=== PATIENT | female | born 1995 | race American Indian/Alaskan Native ===

== ENCOUNTER 2017-05-01 19:02 | Emergency (ER) | payer MEDICAID ==
[2017-05-01 20:08] LABS: Basophils % (Auto) 0.1 % (0.0-1.8); Eosinophils % (Auto) 0.4 % (0.0-4.3); Hematocrit 36.4 % (30.3-42.9); Hemoglobin 12.2 gm/dl (10.1-14.3); Mean Corpuscular HGB Conc 33 % (30-34); Mean Corpuscular Hemoglobin 30 pg (28-32); Mean Corpuscular Volume 88 fl (79-97); Platelet Count 251 K/mm3 (140-440); Red Blood Count 4.13 M/mm3 (3.65-5.03); Red Cell Distribution Width 13.3 % (13.2-15.2); White Blood Count 9.1 K/mm3 (4.5-11.0)
[2017-05-01 20:25] LABS: Anion Gap 16 mmol/L; Blood Urea Nitrogen 11 mg/dL (7-17); Carbon Dioxide 25 mmol/L (22-30); Chloride 100.3 mmol/L (98-107); Glucose 75 mg/dL (65-100); Sodium 137 mmol/L (137-145)
[2017-05-01 20:48] LABS: Bilirubin,Urine NEG (Negative); Blood,Urine NEG (Negative); Ketones,Urine NEG (Negative); Leukocyte Esterase,Urine TR (Negative); Mucus,Urine 1+ /HPF; Nitrite,Urine NEG (Negative); Protein,Urine <15 mg/dL mg/dL (Negative)
[2017-05-01] MEDS ORDERED: NACL 0.9% 1000 ML 1,000 ML IV ONE (21:50)
--- NOTE | 2017-05-01 21:56 | Emergency Department Report ---
HPI - General Chief Complaint: Headache Time Seen by Provider: 05/01/17 21:40 - HPI HPI: Room 2 The patient is a 21-year-old female presenting with a chief complaint of diarrhea dizziness and abdominal pain. The patient is approximately 17 weeks gestational age and states for the past month she has had many headaches associated with sore throat. Patient states she's had diarrhea and nausea but denies vomiting. The patient states when she stands of prolonged time she gets dizzy and develops headache. Patient states she feels motions can't pass out. Patient states for the last week she has had lower abdominal pain and back pain. Patient denies vaginal bleeding. When asked how she is feeling currently the patient replies that her throat hurts, she has low back pain and lower abdominal cramping. Patient denies any other complaints Location: [see above] Duration: One month, see above Quality: Cramping Severity: Mild Modifying factors: [see above] Context: [see above] Mode of transportation: [not driving] ED Past Medical Hx - Past Medical History Previous Medical History?: No - Surgical History Past Surgical History?: No - Family History Family history: no significant - Social History Smoking Status: Never Smoker Substance Use Type: None (denies illicit drug use) - Medications Home Medications: Home Medications Medication Instructions Recorded Confirmed Last Taken Type Ibuprofen [Motrin] 600 mg PO Q8H PRN #30 tablet 02/19/15 06/04/16 Unknown Rx Sulfamethoxazole/Trimethoprim 1 each PO BID #10 tablet 02/19/15 06/04/16 Unknown Rx [Bactrim Ds] traMADol [Ultram] 50 mg PO Q6HR PRN #14 tablet 02/19/15 06/04/16 Unknown Rx HYDROcodone/APAP 5-325 [[place] 1 each PO Q6HR PRN #10 tablet 06/05/16 Unknown Rx 5/325] Ibuprofen [Motrin 600 MG tab] 600 mg PO Q6HR #30 tablet 06/05/16 Unknown Rx Multivitamin with Iron 1 each PO DAILY #30 tablet 06/05/16 Unknown Rx [Multivitamins with Iron] ED Review of Systems ROS: Stated complaint: HEADACHE X 4 DAYS Other details as noted in HPI Comment: All other systems reviewed and negative Constitutional: denies: chills, fever Eyes: denies: eye pain, eye discharge, vision change ENT: denies: ear pain, throat pain Respiratory: denies: cough, shortness of breath, wheezing Cardiovascular: denies: chest pain, palpitations Endocrine: no symptoms reported Gastrointestinal: abdominal pain, nausea, diarrhea. denies: vomiting Genitourinary: denies: urgency, dysuria, discharge Musculoskeletal: back pain, myalgia Skin: denies: rash, lesions Neurological: headache. denies: weakness, paresthesias Psychiatric: denies: anxiety, depression Hematological/Lymphatic: denies: easy bleeding, easy bruising Physical Exam - Physical Exam Vital Signs: Vital Signs 05/01/17 19:19 Temperature 97.8 F Pulse Rate 95 H Respiratory 18 Rate Blood Pressure 106/67 O2 Sat by Pulse 100 Oximetry Physical Exam: GENERAL: The patient is well-developed well-nourished female sitting on stretcher not appearing to be in acute distress. [] HEENT: Normocephalic. Atraumatic. Extraocular motions are intact. Patient has moist mucous membranes. NECK: Supple. No meningitic signs are noted. Trachea Midline CHEST/LUNGS: Clear to auscultation. There is no respiratory distress noted. HEART/CARDIOVASCULAR: Regular. There is no tachycardia. There is no gallop rub or murmur. ABDOMEN: Abdomen is soft, mild discomfort to palpation in the left lower quadrant. Patient has normal bowel sounds. There is no abdominal distention. SKIN: There is no rash. There is no edema. There is no diaphoresis. NEURO: The patient is awake, alert, and oriented. The patient is cooperative. The patient has no focal neurologic deficits. The patient has normal speech and gait. He well-nourished 2 through 12 grossly intact, no drift. No dysmetria noted with [id number] bilaterally. Negative [place]berg MUSCULOSKELETAL:There is no evidence of acute injury. ED Course Vital Signs 05/01/17 19:19 Temperature 97.8 F Pulse Rate 95 H Respiratory 18 Rate Blood Pressure 106/67 O2 Sat by Pulse 100 Oximetry ED Medical Decision Making - Lab Data Result diagrams: 05/01/17 19:48 05/01/17 19:48 Laboratory Tests 05/01/17 05/01/17 05/01/17 19:48 19:48 19:48 WBC 9.1 RBC 4.13 Hgb 12.2 Hct 36.4 MCV 88 MCH 30 MCHC 33 RDW 13.3 Plt Count 251 Lymph % (Auto) 15.9 Long % (Auto) 6.5 Eos % (Auto) 0.4 Baso % (Auto) 0.1 Lymph # 1.4 Long # 0.6 Eos # 0.0 Baso # 0.0 Seg Neutrophils % 77.1 H Seg Neutrophils # 7.0 Sodium 137 Potassium 4.0 Chloride 100.3 Carbon Dioxide 25 Anion Gap 16 BUN 11 Creatinine 0.5 L Estimated GFR > 60 BUN/Creatinine Ratio 22.00 Glucose 75 Calcium 9.0 HCG, Quant 77135 H Urine Color Urine Turbidity Urine pH Ur Specific [place] Urine Protein Urine Glucose (UA) Urine Ketones Urine Blood Urine Nitrite Ur Reducing Substances Urine Bilirubin Urine Ictotest Urine Urobilinogen Ur Leukocyte Esterase Urine WBC (Auto) Urine RBC (Auto) U Epithel Cells (Auto) Urine Mucus Urine HCG, Qual 05/01/17 20:21 WBC RBC Hgb Hct MCV MCH MCHC RDW Plt Count Lymph % (Auto) Long % (Auto) Eos % (Auto) Baso % (Auto) Lymph # Long # Eos # Baso # Seg Neutrophils % Seg Neutrophils # Sodium Potassium Chloride Carbon Dioxide Anion Gap BUN Creatinine Estimated GFR BUN/Creatinine Ratio Glucose Calcium HCG, Quant Urine Color Yellow Urine Turbidity Clear Urine pH 6.0 Ur Specific [place] 1.028 Urine Protein <15 mg/dl Urine Glucose (UA) Neg Urine Ketones Neg Urine Blood Neg Urine Nitrite Neg Ur Reducing Substances Not Reportable Urine Bilirubin Neg Urine Ictotest Not Reportable Urine Urobilinogen 4.0 Ur Leukocyte Esterase Tr Urine WBC (Auto) 1.0 Urine RBC (Auto) 7.0 U Epithel Cells (Auto) 9.0 Urine Mucus 1+ Urine HCG, Qual Positive A - Radiology Data Radiology results: report reviewed (pelvic ultrasound), image reviewed (pelvic ultrasound) pelvic ultrasound processes read by radiologist)-single live intrauterine . heart motion was detected and heart rate is 162 bpm. - Differential Diagnosis UTI, threatened , dehydration, Critical care attestation.: If time is entered above; I have spent that time in minutes in the direct care of this critically ill patient, excluding procedure time. ED Disposition Clinical Impression: , Dehydration Disposition: DC-01 TO HOME OR SELFCARE Is pt being admited?: No Does the pt Need Aspirin: No Condition: Stable Instructions: Dehydration (ED), (ED) Additional Instructions: Return to the emergency department immediately should you develop worsening symptoms, fever, inability to tolerate food or liquid or any other concerns. Referrals: ADRIENNE CONDE [Other] - 3-5 Days Time of Disposition: 23:29
--- NOTE | 2017-05-01 23:04 | Ultrasound Report ---
FINAL REPORT EXAM: US OB \T\gt; = 14 WEEKS FETUS HISTORY: lower abdominal pain TECHNIQUE: Transabdominal sonography of the pelvis. PRIORS: None for this . FINDINGS: There is a single, live intrauterine in cephalic presentation. heart motion is detected and heart rate is 162 beats per minute. Placenta is located posterior and there is no evidence of previa. Cervical length 3.4 cm. Biometric data obtained and corresponds to an estimated gestational age of 18 weeks 1 day and an ultrasound estimated date of delivery of 01 October 2017. survey not performed. Amniotic fluid index is subjectively within normal limits. BPD: 4.07 cm HC: 15.0 cm AC: 12.6 cm FL: 2.83 cm Remainder of the uterus and adnexa grossly unremarkable. IMPRESSION: 1. Single, live intrauterine .
[2017-05-02 00:04] VITALS: BP 100/70
== END 2017-05-01 23:55 | disposition home or self-care (01) ==
LOC: ED 19:02
DX: O26.892 Other specified pregnancy related conditions, second trimester (principal); E86.0 Dehydration; Z3A.17 17 weeks gestation of pregnancy
CPT/HCPCS: 36415; 76805; 80048; 81001; 81025; 84702; 85025; 96360; 99284; J7030

== ENCOUNTER 2017-07-15 18:30 | Outpatient (CLI) | payer MEDICAID ==
[2017-07-15 22:43] LABS: Bacteria,Urine 1+ /HPF (Negative); Bilirubin,Urine NEG (Negative); Blood,Urine NEG (Negative); Ketones,Urine TR mg/dL (Negative); Leukocyte Esterase,Urine NEG (Negative); Mucus,Urine 1+ /HPF; Nitrite,Urine NEG (Negative); Urobilinogen,Urine < 2.0 mg/dL (<2.0)
[2017-07-15] MEDS ORDERED: LACTATED RINGERS 1,000 ML IV SCH (23:00)
[2017-07-16] MEDS ORDERED: LACTATED RINGERS 500 ML IV ONE (00:01)
== END 2017-07-16 00:07 | disposition home or self-care (01) ==
LOC: EDSTATUS 20:18 → TRG 20:21
PROVIDERS: ATTEND Obstetrics & Gynecology Gynecology
DX: O21.2 Late vomiting of pregnancy (principal); O26.892 Other specified pregnancy related conditions, second trimester; R51 Headache; R10.9 Unspecified abdominal pain; Z3A.27 27 weeks gestation of pregnancy
CPT/HCPCS: 81001; 96360

== ENCOUNTER 2017-08-21 12:01 | Outpatient (CLI) | payer MEDICAID ==
[2017-08-21] MEDS ORDERED: LACTATED RINGERS 500 ML IV ONE (12:14)
[2017-08-21 12:17] VITALS: BP 96/57
[2017-08-21 13:04] LABS: Bacteria,Urine 1+ /HPF (Negative); Bilirubin,Urine NEG (Negative); Blood,Urine NEG (Negative); Ketones,Urine NEG (Negative); Leukocyte Esterase,Urine LG (Negative); Mucus,Urine 1+ /HPF; Nitrite,Urine NEG (Negative); Protein,Urine <15 mg/dL mg/dL (Negative)
== END 2017-08-21 13:49 | disposition home or self-care (01) ==
LOC: TRG 12:01
PROVIDERS: ATTEND Obstetrics & Gynecology Gynecology
DX: O47.03 False labor before 37 completed weeks of gestation, third trimester (principal); Z3A.35 35 weeks gestation of pregnancy
CPT/HCPCS: 59025; 81001; 96360; J7120

== ENCOUNTER 2017-08-24 08:47 | Outpatient (CLI) | payer MEDICAID ==
[2017-08-24 09:16] VITALS: BP 106/57
[2017-08-24] MEDS: LACTATED RINGERS 1,000 ML IV SCH ×2 (10:07→11:07)
[2017-08-24 10:56] LABS: Bacteria,Urine 1+ /HPF (Negative); Bilirubin,Urine NEG (Negative); Blood,Urine NEG (Negative); Ketones,Urine TR mg/dL (Negative); Leukocyte Esterase,Urine LG (Negative); Mucus,Urine 3+ /HPF; Nitrite,Urine NEG (Negative)
[2017-08-24 10:59] LABS: Basophils % (Auto) 0.1 % (0.0-1.8); Eosinophils % (Auto) 0.1 % (0.0-4.3); Hematocrit 38.2 % (30.3-42.9); Hemoglobin 13.4 gm/dl (10.1-14.3); Mean Corpuscular HGB Conc 35 % (30-34); Mean Corpuscular Hemoglobin 31 pg (28-32); Mean Corpuscular Volume 88 fl (79-97); Platelet Count 250 K/mm3 (140-440); Red Blood Count 4.34 M/mm3 (3.65-5.03); Red Cell Distribution Width 12.9 % (13.2-15.2); White Blood Count 9.7 K/mm3 (4.5-11.0)
[2017-08-24] MEDS ORDERED: ZOFRAN IV NR (11:00)
[2017-08-24] MEDS ORDERED: LACTATED RINGERS 500 ML IV ONE (11:00)
[2017-08-24 11:32] LABS: Anion Gap 17 mmol/L; BUN/Creatinine Ratio 14; Blood Urea Nitrogen 7 mg/dL (7-17); Calcium 8.7 mg/dL (8.4-10.2); Carbon Dioxide 23 mmol/L (22-30); Chloride 100.8 mmol/L (98-107); Glucose 73 mg/dL (65-100); Potassium 3.9 mmol/L (3.6-5.0); Sodium 137 mmol/L (137-145)
== END 2017-08-24 11:55 | disposition home or self-care (01) ==
LOC: TRG 08:47
PROVIDERS: ATTEND Obstetrics & Gynecology
DX: Z34.93 Encounter for supervision of normal pregnancy, unspecified, third trimester (principal); Z3A.36 36 weeks gestation of pregnancy
CPT/HCPCS: 36415; 59025; 80048; 81001; 85025; 96360; 96361; 96365; J2405; J7120

== ENCOUNTER 2017-08-29 18:06 | Outpatient (CLI) | payer MEDICAID ==
[2017-08-29] MEDS ORDERED: LACTATED RINGERS 500 ML IV ONE (18:53)
--- NOTE | 2017-08-30 07:37 | Ultrasound Report ---
ULTRASOUND OB LIMITED History: well being, evaluate amniotic fluid Technique: Transabdominal ultrasound with Doppler interrogation. Gestation: Single Position: Breech Amniotic Fluid: Normal LEANNA = 7.8 cm Heart Rate: 157 BPM
== END 2017-08-29 21:32 | disposition home or self-care (01) ==
LOC: TRG 18:06
PROVIDERS: ATTEND Obstetrics & Gynecology Gynecology
DX: O32.1XX0 Maternal care for breech presentation, not applicable or unspecified (principal); O47.03 False labor before 37 completed weeks of gestation, third trimester; Z3A.36 36 weeks gestation of pregnancy
CPT/HCPCS: 59025; 76815

== ENCOUNTER 2017-09-08 13:08 | Inpatient (IN) | payer MEDICAID ==
[2017-09-08] MEDS ORDERED: REGLAN IV SCH (13:36)
--- NOTE | 2017-09-08 13:38 | History and Physical Report ---
History of Present Illness Date of examination: 09/08/17 Date of admission: 09/08/17 13:08 Chief complaint: IUGR with oligohydramnios History of present illness: 22-year-old 001 at 37+2 weeks (IRINA 09/29/17) is here for delivery. Patient was seen by [facility] for IUGR, patient now has oligo with LEANNA ~ 5. He sent over for delivery, patient in breech presentation. course otherwise unremarkable She denies vaginal bleeding, loss of fluid or contractions Past History Past Medical History: no pertinent history Past Surgical History: no surgical history [employer] History: denies: chlamydia, gonorrhea, hepatitis B, hepatitis C, herpes, HIV , syphilis, trichomonas Social history: single, full code. denies: smoking, alcohol abuse, prescription drug abuse, IV drug use - Obstetrical History Expected Date of Delivery: 09/29/17 Actual Gestation: 37 Week(s) 0 Day(s) : 2 Medications and Allergies Allergies Allergy/AdvReac Type Severity Reaction Status Date / Time No Known Allergies Allergy Verified 03/06/15 10:29 Home Medications Medication Instructions Recorded Confirmed Last Taken Type Ibuprofen [Motrin] 600 mg PO Q8H PRN #30 tablet 02/19/15 06/04/16 Unknown Rx Sulfamethoxazole/Trimethoprim 1 each PO BID #10 tablet 02/19/15 06/04/16 Unknown Rx [Bactrim Ds] traMADol [Ultram] 50 mg PO Q6HR PRN #14 tablet 02/19/15 06/04/16 Unknown Rx HYDROcodone/APAP 5-325 [[place] 1 each PO Q6HR PRN #10 tablet 06/05/16 Unknown Rx 5/325] Ibuprofen [Motrin 600 MG tab] 600 mg PO Q6HR #30 tablet 06/05/16 Unknown Rx Multivitamin with Iron 1 each PO DAILY #30 tablet 06/05/16 Unknown Rx [Multivitamins with Iron] Review of Systems Constitutional: no fever, no chills, no malaise, no chronic headaches Eyes: no diplopia, no photophobia, no blind spots Cardiovascular: no chest pain, no orthopnea, no palpitations, no syncope, no lightheadedness, no shortness of breath, no dyspnea on exertion, no high blood pressure, no decreased exercise tolerance Respiratory: no cough, no cough with sputum, no shortness of breath, no dyspnea on exertion Gastrointestinal: no abdominal pain, no nausea, no vomiting Genitourinary: no vaginal bleeding, no vaginal discharge, no leakage of fluid - Physical Exam Cardiovascular: Regular rate, Normal S1, Normal S2 Lungs: Positive: Clear to auscultation, Normal air movement Abdomen: Positive: normal appearance, soft. Negative: distention, tenderness, guarding, rigidity Genitourinary (Female): Positive: normal external genitalia Uterus: Positive: enlarged (EFW ~ 3200). Negative: tender Extremities: Positive: normal - Obstetrical FHR: category 1 Results All other labs normal. Assessment and Plan A: 22 y/o at ~ 37 wks here for Primary LTCS -Breech presentation -Oligohydramnious P: -Obtain routine labs -Patient has been consented -Proceed to the OR was available - Patient Problems (1) 37 weeks gestation of Current Visit: Yes Status: Acute (2) Breech presentation Current Visit: Yes Status: Acute Qualifiers: Fetus number: F (3) Oligohydramnios Current Visit: Yes Status: Acute Qualifiers: Fetus number: F Trimester: T (4) Short interval between pregnancies affecting in third trimester, antepartum Current Visit: Yes Status: Acute
[2017-09-08] MEDS ORDERED: BICITRA PO SCH (14:00)
[2017-09-08] MEDS ORDERED: ANCEF/STERILE WATER 2 GM/20 ML 2 GM/20 ML SYRINGE IV NR (14:00)
[2017-09-08] MEDS ORDERED: PITOCin/NS 20 UNIT/1000ML DRIP 20 UNITS/1,000 ML BAG IV SCH ×2 (14:00→19:00)
[2017-09-08] MEDS ORDERED: PEPCID IV SCH (14:00)
[2017-09-08] MEDS ORDERED: PEPCID IV ONE (14:00)
[2017-09-08 14:35] LABS: Basophils % (Auto) 0.1 % (0.0-1.8); Eosinophils % (Auto) 0.5 % (0.0-4.3); Hematocrit 40.6 % (30.3-42.9); Mean Corpuscular HGB Conc 34 % (30-34); Mean Corpuscular Hemoglobin 31 pg (28-32); Mean Corpuscular Volume 89 fl (79-97); Platelet Count 275 K/mm3 (140-440); Red Blood Count 4.58 M/mm3 (3.65-5.03); Red Cell Distribution Width 13.1 % (13.2-15.2); White Blood Count 7.7 K/mm3 (4.5-11.0)
[2017-09-08] MEDS: LACTATED RINGERS 1,000 ML IV SCH ×2 (14:37→15:59)
[2017-09-08] MEDS ORDERED: NEO SYNEPHRINE/NS Syringe(OR USE) IV ONE (17:00)
[2017-09-08] MEDS ORDERED: MORPHINE ONE (17:11)
[2017-09-08] MEDS ORDERED: NACL 0.9% IR ONE (17:20)
[2017-09-08] MEDS ORDERED: WATER FOR IRRIG STERILE IR ONE (17:20)
--- NOTE | 2017-09-08 18:25 | Operative Report ---
Operative Report Operative Report: DATE: 09/08/2017 PREOPERATIVE DIAGNOSIS: 22-year-old 001 at 37+2 weeks gestation, oligohydramnios, complete breech presentation, IUGR POSTOP DIAGNOSIS: As above NAME OF PROCEDURE: Primary low transverse section SURGEON: SHAYY VARELA MD SUPPLY SERVICE WORKER: [] ANESTHESIA: Spinal epidural EBL: 500 mL PATHOLOGY SPECIMEN: None URINE OUTPUT: 100 mL FINDINGS: Female infant in complete breech presentation, time of was 17:44 , weight was 4 lbs. 8 oz. or 2049 g, Apgars were 8 and 9, normal uterus tubes and ovaries bilaterally DESCRIPTION OF PROCEDURE: After informed consent, patient was taken to the operating room where she was prepped and draped in a sterile fashion. Pfannestial incision was performed 2 cm above the pubic symphysis. This was then carried down to the underlying rectus fascia which was scored in the midline. The fascial incision was extended laterally with the use of Chavez scissors, anterior leaf was then grasped with Saul's elevated dissected sharply and bluntly off the underlying rectus. In a similar fashion the inferior leaf was grasped elevated dissected sharply and bluntly off the underlying rectus. The rectus was in the midline and the peritoneal cavity was entered without difficulty. After good visualization of the bladder the peritoneal layer was extended up and down; bladder blade was placed in the patient's pelvic cavity, bladder flap was created without difficulty. A hysterotomy incision was then performed with Clear amniotic fluid noted. in cephalic presentation was delivered without difficulty in the usual manner; cord was clamped cut and infant was handed over to waiting NICU staff. The placenta was then delivered intact, the uterus was then exteriorized cleared of all clots and debris. Her hysterotomy incision was then closed in a running locked fashion with 0 Vicryl on a CTX; using the same suture were able to imbricate the initial layer. The uterus was then returned to the patient's pelvic cavity; the peritoneal edges were grasped with hemostats and Yaneli's; irrigation was used to clear the gutters of all clots and debris. Tisseel hemostatic agent was applied copiously over the hysterotomy incision. The bladder flap was then closed in a running fashion with 3-0 Vicryl. The peritoneal layer was closed in a running fashion with 3-0 Vicryl; the rectus was reapproximated with a single [id number] stitch. The fascia was then closed in a running fashion with 0 Vicryl; the subcutaneous layer was reapproximated with a single [id number] stitch. The skin was then closed in a subcuticular manner with 4-0 Monocryl. She tolerated the procedure well lap and instrument counts were correct 2, she did receive 2 grams of Ancef prior to the procedure. She is transferred to PACU in stable condition.
[2017-09-08] MEDS ORDERED: TORADOL IV PRN (18:26)
[2017-09-08] MEDS ORDERED: TYLENOL PO PRN (18:26)
[2017-09-08] MEDS ORDERED: ZOFRAN IV PRN (18:26)
[2017-09-08] MEDS ORDERED: TUCKS PAD TP PRN (18:26)
[2017-09-08] MEDS ORDERED: MILK OF MAGNESIA PO PRN (18:26)
[2017-09-08] MEDS ORDERED: ANUCORT-HC PR PRN (18:26)
[2017-09-08] MEDS ORDERED: NARCAN 0.4 MG/1 ML IV PRN (18:26)
[2017-09-08] MEDS ORDERED: PHENERGAN PR PRN (18:26)
[2017-09-08] MEDS ORDERED: SENOKOT PO PRN (18:26)
[2017-09-08] MEDS ORDERED: LANSINOH TP PRN (18:26)
[2017-09-08] MEDS ORDERED: SODIUM CHLORIDE FLUSH SYRINGE 10 ML IV SCH (19:00)
[2017-09-08] MEDS ORDERED: D5LR 1,000 ML IV SCH (19:00)
[2017-09-08] MEDS ORDERED: DILAUDID IV PRN (19:02)
--- NOTE | 2017-09-08 19:02 | Post Anesthesia Evaluation ---
- Post Anesthesia Evaluation Patient Participated: Yes Airway Patent: Yes Stable Respiratory Function: Yes Nausea/Vomiting: No Temp > 96.8F: Yes Pain Manageable: Yes Adequeate Hydration: Yes Anesthesia Complications: No Block Receding Appropriately: Yes Patient on Ventilator: No
--- NOTE | 2017-09-08 19:02 | Anesthesia Consultation ---
Anesthesia Consult and Med Hx Date of service: 09/08/17 - Airway Anesthetic Teeth Evaluation: Good ROM Head & Neck: Adequate Mental/Hyoid Distance: Adequate Mallampati Class: Class II Intubation Access Assessment: Probably Good - Pulmonary Exam CTA: Yes - Cardiac Exam Cardiac Exam: RRR - Pre-Operative Health Status ASA Pre-Surgery Classification: ASA2 Proposed Anesthetic Plan: General - Pulmonary Hx Asthma: No COPD: No Hx Pneumonia: No - Cardiovascular System Hx Hypertension: No Hx Coronary Artery Disease: No Hx Heart Attack/AMI: No Hx Angina: No Hx Cardia Arrhythmia: No Hx Heart Murmur: No - Central Nervous System Hx Seizures: No Hx Psychiatric Problems: No - Endocrine Hx Renal Disease: No Hx End Stage Renal Disease: No Hx Hypothyroidism: No Hx Hyperthyroidism: No - Hematic Hx Anemia: No Hx Sickle Cell Disease: No - Other Systems Hx Alcohol Use: No - Additional Comments Anesthesia Medical History Comments: IUP, BREECH, OLIGO
[2017-09-08] MEDS ORDERED: BENADRYL IV PRN (19:08)
[2017-09-09 07:09] LABS: Hematocrit 31.6 % (30.3-42.9); Hemoglobin 10.9 gm/dl (10.1-14.3)
--- NOTE | 2017-09-09 07:48 | Progress Note ---
Assessment and Plan POD # 1 s/p Primary LTCS -Doing well P: -Continue routine post care -Anticipate discharge in 24-48 hours - Patient Problems (1) Status post primary low transverse section Current Visit: Yes Status: Acute (2) 37 weeks gestation of Current Visit: Yes Status: Acute (3) Breech presentation Current Visit: Yes Status: Acute Qualifiers: Fetus number: F (4) Oligohydramnios Current Visit: Yes Status: Acute Qualifiers: Fetus number: F Trimester: T (5) Short interval between pregnancies affecting in third trimester, antepartum Current Visit: Yes Status: Acute Subjective - Subjective Date of service: 09/09/17 Principal diagnosis: POD # 1 Interval history: Patient seen and examined, stable and well. No shortness of breath or chest pain, no fever or chills, adequate bowel bladder function Patient reports: appetite normal, voiding normally, pain well controlled, ambulating normally, no dizzy ambulation, no nauseated [place]: doing well Objective - Vital Signs Latest vital signs: Vital Signs Temp Pulse Resp BP BP Pulse Ox 09/09/17 04:56 20 09/09/17 04:55 99.0 F 71 18 92/53 09/09/17 01:35 98.2 F 74 18 97/51 09/08/17 20:23 97.4 F L 79 18 115/57 09/08/17 19:00 61 14 92/59 98 09/08/17 18:56 64 16 98/47 99 09/08/17 18:50 69 14 97/53 98 09/08/17 18:45 69 18 97/45 98 09/08/17 18:40 65 15 94/54 98 09/08/17 18:35 72 10 L 97/47 99 09/08/17 18:30 79 12 92/46 100 09/08/17 18:28 78 10 L 96/40 99 09/08/17 17:52 102 H 89 09/08/17 17:51 77 85 09/08/17 17:50 79 99 09/08/17 17:49 98 H 111/65 83 L 09/08/17 17:48 88 98 09/08/17 15:57 74 99 09/08/17 15:52 70 98/58 09/08/17 15:51 85 99 09/08/17 15:49 75 99 09/08/17 15:44 80 99 09/08/17 15:39 87 99 09/08/17 15:37 105 H 95 09/08/17 15:32 86 99 09/08/17 15:27 84 99 09/08/17 15:22 85 99 09/08/17 15:17 90 99 09/08/17 15:12 89 99 09/08/17 15:07 83 99 09/08/17 15:01 84 99 09/08/17 14:56 91 H 99 09/08/17 14:51 85 99/68 99 09/08/17 14:48 87 97 09/08/17 14:43 94 H 99 09/08/17 14:40 91 H 99 09/08/17 14:39 87 99 09/08/17 14:34 97 H 99 09/08/17 14:29 85 96 09/08/17 14:28 89 99 09/08/17 14:27 84 85 09/08/17 14:26 92 H 99 09/08/17 14:24 94 H 99 09/08/17 14:19 90 99 09/08/17 14:16 91 H 96 09/08/17 14:12 108 H 98 09/08/17 14:07 96 H 99 09/08/17 14:01 104 H 99 09/08/17 13:56 87 81 L 09/08/17 13:51 84 99/62 09/08/17 13:50 97.7 F 18 Intake and Output 09/08/17 09/08/17 09/09/17 15:59 23:59 07:59 Intake Total 1000 1350 120 Output Total 200 400 Balance 1000 1150 -280 Intake: IV 1000 1350 Lactated Ringers 1,000 ml 1000 @ 2250 mls/hr IV PREOP [facility] Rx#:[id number] Oral 120 Output: Urine 200 400 Indwelling Catheter 400 Other: Total, Intake Amount 120 Total, Output Amount 400 Weight 58.967 kg Estimated Blood Loss 500 - Exam Abdomen: Present: normal appearance, soft. Absent: distention, tenderness, guarding, rigidity Uterus: Present: fundal height below umbilicus. Absent: tenderness Extremities: Present: normal Incision: Present: dressed - Labs Labs: Abnormal lab results 09/08/17 Range/Units 13:50 RDW 13.1 L (13.2-15.2) % [place] % (Auto) 8.0 H (0.0-7.3) % Seg Neutrophils % 70.5 H (40.0-70.0) %
--- NOTE | 2017-09-09 09:07 | Progress Note ---
Subjective Date of service: 09/09/17 Principal diagnosis: POD # 1 Interval history: No anesthetic related complaints. Objective - Constitutional Vitals: Vital Signs - 12hr 09/09/17 09/09/17 09/09/17 01:35 03:15 04:55 Temperature 98.2 F 99.0 F Pulse Rate 74 71 Respiratory 18 18 Rate Blood Pressure 97/51 Blood Pressure 97/51 92/53 [Left] O2 Sat by Pulse Oximetry 09/09/17 09/09/17 04:56 08:40 Temperature 98.7 F Pulse Rate 98 H Respiratory 20 16 Rate Blood Pressure 103/61 Blood Pressure [Left] O2 Sat by Pulse 99 Oximetry - Labs CBC & Chem 7: 09/09/17 06:30 Labs: Abnormal lab results 09/08/17 Range/Units 13:50 RDW 13.1 L (13.2-15.2) % [place] % (Auto) 8.0 H (0.0-7.3) % Seg Neutrophils % 70.5 H (40.0-70.0) %
[2017-09-09] MEDS: PRENATAL VITAMIN PO SCH (10:21)
[2017-09-09] MEDS: FEOSOL PO SCH (10:21)
[2017-09-09] MEDS: MOTRIN PO PRN ×2 (12:07→21:23)
[2017-09-10] MEDS: MYLICON PO PRN ×2 (01:41→22:49)
[2017-09-10] MEDS: PERCOCET 5/325 PO PRN ×2 (01:42→22:49)
--- NOTE | 2017-09-10 10:14 | Progress Note ---
Assessment and Plan POD # 2 s/p Primary LTCS -Doing well P: -Continue routine post care -Anticipate discharge in 24-48 hours - Patient Problems (1) Status post primary low transverse section Current Visit: Yes Status: Acute (2) 37 weeks gestation of Current Visit: Yes Status: Acute (3) Breech presentation Current Visit: Yes Status: Acute Qualifiers: Fetus number: F (4) Oligohydramnios Current Visit: Yes Status: Acute Qualifiers: Fetus number: F Trimester: T (5) Short interval between pregnancies affecting in third trimester, antepartum Current Visit: Yes Status: Acute Subjective - Subjective Date of service: 09/10/17 Principal diagnosis: POD # 2 Interval history: Patient seen and examined, stable and well. No shortness of breath or chest pain, no fever or chills, adequate bowel bladder function Patient reports: appetite normal, voiding normally, pain well controlled, flatus , ambulating normally, no dizzy ambulation, no nauseated [place]: doing well Objective - Vital Signs Latest vital signs: Vital Signs Temp Pulse Resp BP BP Pulse Ox 09/10/17 08:30 98.4 F 70 18 96/58 09/09/17 23:33 98.2 F 80 18 96/59 09/09/17 16:43 97.9 F 79 18 88/49 98 09/09/17 12:00 98.7 F 72 18 101/60 Intake and Output 09/09/17 09/10/17 09/10/17 23:59 07:59 15:59 Intake Total 120 120 Output Total 600 Balance -480 120 Intake: Oral 120 120 Output: Urine 600 Void 600 Other: Total, Intake Amount 120 120 Total, Output Amount 600 # Voids Void 3 1 - Exam Abdomen: Present: normal appearance, soft. Absent: distention, tenderness, guarding, rigidity Uterus: Present: firm, fundal height below umbilicus. Absent: tenderness Extremities: Present: normal Incision: Present: dry, intact
--- NOTE | 2017-09-10 10:16 | Discharge Summary ---
Providers - Providers Date of Admission: 09/08/17 13:08 Date of discharge: 09/11/17 Attending physician: SHAYY VARELA Primary care physician: SHAYY VARELA Hospitalization Reason for admission: section, other (IUP in breech presentation) Delivery: Procedure: primary low transverse Incision: dry, intact Other procedures: none complications: none Discharge diagnosis: IUP at term delivered, other (Primary for breech presentation) baby: female Hospital course: Uncomplicated postoperative course Condition at discharge: Good Disposition: DC-01 TO HOME OR SELFCARE - Discharge Diagnoses (1) Status post primary low transverse section Status: Acute (2) 37 weeks gestation of Status: Acute (3) Breech presentation Status: Acute Qualifiers: Fetus number: F (4) Oligohydramnios Status: Acute Qualifiers: Fetus number: F Trimester: T (5) Short interval between pregnancies affecting in third trimester, antepartum Status: Acute Plan - Discharge Medications Prescriptions: Ibuprofen [Motrin 600 MG tab] 600 mg PO Q8H PRN #30 tablet PRN Reason: Pain Multivitamin with Iron [Multivitamins with Iron] 1 each PO DAILY #30 tablet oxyCODONE /ACETAMINOPHEN [Percocet 5/325] 1 tab PO Q6HR PRN #30 tablet PRN Reason: Pain - Provider Discharge Summary Activity: no sex for 6 weeks, no heavy lifting 4 weeks, no strenuous exercise Diet: routine Additional instructions: [] Smoking cessation referral if applicable(refer to patient education folder for contact #) [] Refer to [facility] Booklet Call your doctor immediately for: * Fever > 100.5 * Heavy vaginal bleeding ( >1 pad per hour) * Severe persistent headache * Shortness of breath * Reddened, hot, painful area to leg or breast * Drainage or odor from incision. * Keep incision clean and dry at all times and follow doctor's instructions regarding bathing/showering - Follow up plan Follow up: SHAYY VARELA MD [Primary Care Provider] - 14 Days Forms: [facility] Discharge Summary
[2017-09-10] MEDS: FEOSOL PO SCH (10:57)
[2017-09-10] MEDS: PRENATAL VITAMIN PO SCH (10:57)
[2017-09-10] MEDS: MOTRIN PO PRN (12:10)
[2017-09-11] MEDS ORDERED: BOOSTRIX IM ONE (06:00)
--- NOTE | 2017-09-11 09:56 | Progress Note ---
Assessment and Plan POD # 3 s/p Primary LTCS -Doing well P: -Continue routine post care -Anticipate discharge in 24-48 hours - Patient Problems (1) Status post primary low transverse section Current Visit: Yes Status: Acute (2) 37 weeks gestation of Current Visit: Yes Status: Acute (3) Breech presentation Current Visit: Yes Status: Acute Qualifiers: Fetus number: F (4) Oligohydramnios Current Visit: Yes Status: Acute Qualifiers: Fetus number: F Trimester: T (5) Short interval between pregnancies affecting in third trimester, antepartum Current Visit: Yes Status: Acute Subjective - Subjective Date of service: 09/11/17 Principal diagnosis: POD # 3 Interval history: Patient seen and examined, stable and well. No shortness of breath or chest pain, no fever or chills, adequate bowel bladder function Patient reports: appetite normal, voiding normally, pain well controlled, flatus , ambulating normally, no dizzy ambulation, no nauseated [place]: doing well ( with some ophthalmic issues) Objective - Vital Signs Latest vital signs: Vital Signs Temp Pulse Resp BP 09/11/17 00:00 98.0 F 76 18 98/53 09/10/17 22:49 16 09/10/17 17:30 98 F 85 18 111/74 Intake and Output 09/10/17 09/11/17 09/11/17 23:59 07:59 15:59 Intake Total 120 120 Balance 120 120 Intake: Oral 120 120 Other: Total, Intake Amount 120 120 # Voids Void 1 1 - Exam Abdomen: Present: normal appearance, soft, other (no flank tenderness). Absent : distention, tenderness, guarding, rigidity Uterus: Present: fundal height below umbilicus. Absent: tenderness Extremities: Present: normal Incision: Present: dry, intact
[2017-09-11] MEDS: PRENATAL VITAMIN PO SCH (10:51)
[2017-09-11] MEDS: FEOSOL PO SCH (10:51)
[2017-09-11] MEDS: PERCOCET 5/325 PO PRN (16:47)
[2017-09-11 17:43] VITALS: BP 100/65
[2017-09-11] MEDS: MOTRIN PO PRN (23:51)
== END 2017-09-11 23:59 | disposition home or self-care (01) | DRG 765 ==
LOC: APU 13:08 → OB 20:57
PROVIDERS: ADMIT Obstetrics & Gynecology Gynecology; ATTEND Obstetrics & Gynecology Gynecology
PROC: 10D00Z1 Extraction of Products of Conception, Low, Open Approach (ICD-10-PCS; principal; 2017-09-10)
DX: O32.1XX0 Maternal care for breech presentation, not applicable or unspecified (principal); O41.03X0 Oligohydramnios, third trimester, not applicable or unspecified; Z3A.37 37 weeks gestation of pregnancy; Z37.0 Single live birth
CPT/HCPCS: 36415; 85014; 85018; 85025; 86592; 86850; 86900; 86901; 90471; 90715; 99211; C9250; G0463; J0690; J1885; J2270; J2370; J2590; J2765; J7120; J7121

== ENCOUNTER 2018-06-01 13:43 | Emergency (ER) | payer MEDICAID ==
[2018-06-01 14:10] VITALS: BP 131/72
--- NOTE | 2018-06-01 14:22 | Emergency Department Report ---
ED Abdominal Pain HPI - General Chief Complaint: Abdominal Pain Stated Complaint: BACK PAIN/STOMACH PAIN Time Seen by Provider: 06/01/18 14:21 Source: patient Mode of arrival: Ambulatory Limitations: No Limitations - History of Present Illness Initial Comments: Patient is a 22-year-old female had some central lower abdominal pain for approximately a week with radiation to the back. Patient is crampy in nature. Patient states there's been some urinary frequency but no dysuria.. Patient denies any nausea vomiting diarrhea, no congestion fevers or chills vaginal discharge or abnormal bleeding. MD Complaint: abdominal pain Onset/Timin -: week(s) Location: RLQ, suprapubic Radiation: R flank Migration to: no migration Severity: severe Severity scale (0 -10): 7 Quality: cramping, aching Consistency: intermittent Improves With: nothing Worsens With: nothing Context: other (unknown) Associated Symptoms: other (urinary frequency). denies: nausea, vomiting, diarrhea, fever, chills, constipation, dysuria, hematemesis, hematochezia, melena, hematuria, anorexia, syncope Treatments Prior to Arrival: other (no medication) - Related Data Home Medications Medication Instructions Recorded Confirmed Last Taken Pnv No.95/Ferrous Fum/Folic AC 1 tab PO DAILY 09/08/17 09/08/17 Unknown [ Vitamins Tablet] Previous Rx's Medication Instructions Recorded Last Taken Type Multivitamin with Iron 1 each PO DAILY #30 tablet 09/08/17 Unknown Rx [Multivitamins with Iron] oxyCODONE /ACETAMINOPHEN [Percocet 1 tab PO Q6HR PRN #30 tablet 09/08/17 Unknown Rx 5/325] Fluconazole [Diflucan TAB] 150 mg PO QDAY 2 Days #2 tablet 06/01/18 Unknown Rx Ibuprofen [Motrin 600 MG tab] 600 mg PO Q8H PRN #15 tablet 06/01/18 Unknown Rx Nitrofurantoin [place]/M-Cryst 100 mg PO Q12HR 7 Days #14 capsule 06/01/18 Unknown Rx [Macrobid CAP] Allergies Allergy/AdvReac Type Severity Reaction Status Date / Time No Known Allergies Allergy Verified 06/01/18 14:11 ED Review of Systems ROS: Stated complaint: BACK PAIN/STOMACH PAIN Other details as noted in HPI Constitutional: denies: chills, fever Eyes: denies: eye pain, eye discharge, vision change ENT: denies: throat pain Respiratory: denies: cough, shortness of breath, SOB with exertion, SOB at rest , stridor, wheezing Cardiovascular: denies: chest pain, palpitations, dyspnea on exertion, edema, syncope, paroxysmal nocturnal dyspnea Gastrointestinal: abdominal pain. denies: nausea, vomiting, diarrhea, constipation, hematemesis, melena, hematochezia Genitourinary: denies: urgency, dysuria, frequency, hematuria, discharge, abnormal menses, dyspareunia Musculoskeletal: back pain (right flank pain). denies: joint swelling, arthralgia Skin: denies: rash, lesions Neurological: denies: headache, weakness ED Past Medical Hx - Past Medical History Previous Medical History?: No Hx Hypertension: No Hx Heart Attack/AMI: No Hx Congestive Heart Failure: No Hx Diabetes: No Hx Deep Vein Thrombosis: No Hx Renal Disease: No Hx Sickle Cell Disease: No Hx Seizures: No Hx Asthma: No Hx COPD: No Hx HIV: No - Surgical History Past Surgical History?: Yes Additional Surgical History: x1 - Family History Family history: hypertension - Social History Smoking Status: Never Smoker Substance Use Type: None - Medications Home Medications: Home Medications Medication Instructions Recorded Confirmed Last Taken Type Multivitamin with Iron 1 each PO DAILY #30 tablet 09/08/17 Unknown Rx [Multivitamins with Iron] Pnv No.95/Ferrous Fum/Folic AC 1 tab PO DAILY 09/08/17 09/08/17 Unknown History [ Vitamins Tablet] oxyCODONE /ACETAMINOPHEN [Percocet 1 tab PO Q6HR PRN #30 tablet 09/08/17 Unknown Rx 5/325] Fluconazole [Diflucan TAB] 150 mg PO QDAY 2 Days #2 tablet 06/01/18 Unknown Rx Ibuprofen [Motrin 600 MG tab] 600 mg PO Q8H PRN #15 tablet 06/01/18 Unknown Rx Nitrofurantoin [place]/M-Cryst 100 mg PO Q12HR 7 Days #14 capsule 06/01/18 Unknown Rx [Macrobid CAP] ED Physical Exam - General Limitations: No Limitations General appearance: alert, in no apparent distress - Head Head exam: Present: atraumatic, normocephalic, normal inspection - Eye Eye exam: Present: normal appearance, PERRL, EOMI. Absent: periorbital swelling , periorbital tenderness Pupils: Present: normal accommodation - ENT ENT exam: Present: normal exam, normal orophraynx, mucous membranes moist - Neck Neck exam: Present: normal inspection, full ROM. Absent: tenderness, lymphadenopathy - Respiratory Respiratory exam: Present: normal lung sounds bilaterally. Absent: respiratory distress, chest wall tenderness - Cardiovascular Cardiovascular Exam: Present: regular rate, normal rhythm, normal heart sounds. Absent: systolic murmur, diastolic murmur - GI/Abdominal GI/Abdominal exam: Present: soft, normal bowel sounds. Absent: distended, tenderness, guarding, rebound, rigid, organomegaly, mass, bruit, pulsatile mass , hernia - Extremities Exam Extremities exam: Present: normal inspection, full ROM, normal capillary refill , other (No cce. + 2 pulses in all extremities, no neurovascular compromise). Absent: tenderness, pedal edema, joint swelling, calf tenderness - Back Exam Back exam: Present: normal inspection, full ROM, other (ambulates without any difficulties). Absent: tenderness, CVA tenderness (R), CVA tenderness (L), muscle spasm, paraspinal tenderness, vertebral tenderness, rash noted - Neurological Exam Neurological exam: Present: alert, oriented X3, normal gait, reflexes normal. Absent: motor sensory deficit - Psychiatric Psychiatric exam: Present: normal affect, normal mood - Skin Skin exam: Present: warm, dry, intact, normal color. Absent: rash ED Course Vital Signs 06/01/18 14:06 Temperature 98.2 F Pulse Rate 85 Respiratory 16 Rate Blood Pressure 131/72 O2 Sat by Pulse 98 Oximetry - Reevaluation(s) Reevaluation #1: 06/01/18 17:43 History received [place] 5/325 2 tablets by mouth, Zofran 8 mg ODT. Pain has been relieved. She received Rocephin 1 g IM in the emergency room for UTI and urine culture sent ED Medical Decision Making - Lab Data Lab Results 06/01/18 Range/Units 15:50 Urine Color Yellow (Yellow) Urine Turbidity Cloudy (Clear) Urine pH 5.0 (5.0-7.0) Ur Specific [place] 1.021 (1.003-1.030) Urine Protein <15 mg/dl (Negative) mg/dL Urine Glucose (UA) Neg (Negative) mg/dL Urine Ketones Neg (Negative) mg/dL Urine Blood Sm (Negative) Urine Nitrite Neg (Negative) Ur Reducing Substances Not Reportable Urine Bilirubin Neg (Negative) Urine Ictotest Not Reportable Urine Urobilinogen 4.0 (<2.0) mg/dL Ur Leukocyte Esterase Lg (Negative) Urine WBC (Auto) > 182.0 H (0.0-6.0) /HPF Urine RBC (Auto) 10.0 (0.0-6.0) /HPF U Epithel Cells (Auto) 8.0 (0-13.0) /HPF Urine Bacteria (Auto) 2+ (Negative) /HPF Urine WBC Clumps 2+ /HPF Urine Mucus 3+ /HPF Urine Yeast (Budding) 2+ /HPF Urine HCG, Qual Negative (Negative) Urine culture sent - Medical Decision Making This is a 22-year-old female here reported that she is having urinary frequency and right abdominal and pelvic pain does radiate into her right flank. She denies any fever or chills. Denies any thoughts of being . Patient was seen and evaluated by myself with normal abdominal back exam. Urinalysis positive for white count, small amount of blood, positive bacteria and leukocyte esterase. test is negative also urinalysis positive for budding yeasts. Patient has no vaginal discharge or itching. I discussed her urine results with her and she was not distended diagnosis and treatment plan. Patient was given Rocephin 1 g I am emergency room without any adverse reaction. She was given Madison 2 tablets by mouth initially for pain. She was given Zofran 8 mg ODT to prevent nausea. A/P Acute cystitis without hematuria-urine culture sent-urine positive for small amount of blood, white count, leukocyte Estrace, bacteria and yeast cell. Urine culture sent. Patient given Rocephin 1 g IM in emergency room without any adverse reaction and will be discharged home on Macrobid for cystitis and Diflucan on for yeast UTI and to follow up with primary care physician Abdominal pain radiating into right flank-[place] 5/325 2 tablets by mouth given which relieved her pain and will send home and Motrin. test is negative Patient discharged home in stable condition with prescription for Macrobid, Diflucan and Motrin. Her vital signs are stable and she is afebrile. She is to follow up with primary care in 4 days and she voiced understanding. Pain has been relieved. She is able to tolerate oral liquids in emergency room. - Differential Diagnosis , pyelonephritis, UTI Critical care attestation.: If time is entered above; I have spent that time in minutes in the direct care of this critically ill patient, excluding procedure time. ED Disposition Clinical Impression: Acute cystitis with hematuria, Yeast infection, Acute right flank pain Abdominal pain Qualifiers: Abdominal location: lower abdomen, unspecified Qualified Code(s): R10.30 - Lower abdominal pain, unspecified Disposition: - TO HOME OR SELFCARE Is pt being admited?: No Does the pt Need Aspirin: No Condition: Stable Instructions: Abdominal Pain (ED), Urinary Tract Infection in Women (ED) Additional Instructions: Please follow up with primary care physician in 4 days and if he did not have one please follow up at [facility] Please take Macrobid for bacterial infection and a fluke on for yeast urinary tract infection Increase fluid intake Prescriptions: Fluconazole [Diflucan TAB] 150 mg PO QDAY 2 Days #2 tablet Ibuprofen [Motrin 600 MG tab] 600 mg PO Q8H PRN #15 tablet PRN Reason: Pain Nitrofurantoin [place]/M-Cryst [Macrobid CAP] 100 mg PO Q12HR 7 Days #14 capsule Referrals: [facility] [Outside] - 06/05/18 PRIMARY CARE, [Primary Care Provider] - 06/05/18 Forms: Work/School Release Form(ED)
--- NOTE | 2018-06-01 14:23 | Emergency Department Report ---
Blank Doc - Documentation Documentation: Patient is a 22-year-old female had some central lower abdominal pain for approximately a week with radiation to the back. Patient is crampy in nature. Patient states there's been some urinary frequency but no dysuria.. Patient denies any nausea vomiting diarrhea, no congestion fevers or chills vaginal discharge or abnormal bleeding.
[2018-06-01] MEDS ORDERED: NORCO 5/325 PO ONE (14:36)
[2018-06-01] MEDS ORDERED: ZOFRAN ODT PO ONE (14:36)
[2018-06-01 16:24] LABS: HCG Qualitative,Urine Negative (Negative)
[2018-06-01 16:25] LABS: Bacteria,Urine 2+ /HPF (Negative); Bilirubin,Urine NEG (Negative); Blood,Urine SM (Negative); Color,Urine Yellow (Yellow); Mucus,Urine 3+ /HPF; Protein,Urine <15 mg/dL mg/dL (Negative)
[2018-06-01 16:26] LABS: WBC,Urine > 182.0 /HPF (0.0-6.0)
[2018-06-01] MEDS ORDERED: ROCEPHIN IM STA (17:09)
[2018-06-01] MEDS ORDERED: XYLOCAINE 1% MPF 5 mL INFILTRATI ONE (17:09)
== END 2018-06-01 15:40 | disposition home or self-care (01) ==
LOC: ED 13:43
DX: N30.01 Acute cystitis with hematuria (principal); B37.3 Candidiasis of vulva and vagina; R10.30 Lower abdominal pain, unspecified
CPT/HCPCS: 81001; 81025; 87076; 87086; 87186; 96372; 99283; J0696; Q0162

== ENCOUNTER 2019-08-25 13:55 | Outpatient (CLI) | payer MEDICAID ==
[2019-08-25 14:21] VITALS: BP 106/64
[2019-08-25] MEDS ORDERED: LACTATED RINGERS 1,000 ML IV ONE (16:09)
[2019-08-25] MEDS ORDERED: TERBUTALINE 1 MG/1 ML INJ SUB-Q ONE (16:09)
--- NOTE | 2019-08-25 21:47 | Progress Note ---
Assessment and Plan A: at 39 weeks, 1 day gestation. Rule out labor. Previous section. P: EFM. SVE. Patient signed out AMA according to nurse. Was waiting to recheck patient's cervix and she signed out AMA. Subjective - Subjective Date of service: 08/25/19 Principal diagnosis: at 39 1/7 weeks gestation; R/O labor Interval history: 23 year old presents to rule out labor. Previous C/S in 2017 and previ ous vaginal prior to that. Receives care at [facility]. Patient denies vaginal bleeding or leaking of fluid. Pt. reports active movement. Reports irregular mild contractions. Patient reports: movement normal, contractions, no new complaints, no loss of fluid, no vaginal bleeding Objective - Vital Signs Vital Signs: Vital Signs - 12hr 08/25/19 14:20 Pulse Rate 96 H Blood Pressure 106/64 - Exam Abdomen: Present: normal appearance, soft. Absent: distention, tenderness, guarding, rigidity Uterus: Present: normal, fundal height above umbilicus. Absent: firm, bogginess, tenderness FHR: category 1 Uterine Contraction Monitor Mode: External Cervical Dilatation: 2.5 Cervical Effacement Percentage: 70 station: -2 Uterine Contraction Pattern: Irregular Uterine Contraction Intensity: Mild Extremities: normal
== END 2019-08-25 19:10 | disposition left against medical advice (07) ==
LOC: TRG 13:55
PROVIDERS: ATTEND Obstetrics & Gynecology
DX: O47.1 False labor at or after 37 completed weeks of gestation (principal); O26.853 Spotting complicating pregnancy, third trimester; Z3A.38 38 weeks gestation of pregnancy
CPT/HCPCS: 99212; G0463; J3105; J7120

== ENCOUNTER 2022-04-29 15:22 | Outpatient (CLI) | payer OTHER ==
[2022-04-29 17:24] VITALS: BP 126/84
== END 2022-04-29 17:49 | disposition home or self-care (01) ==
LOC: TRG 15:22 → APU 15:25 → TRG 17:49
PROVIDERS: ATTEND Obstetrics & Gynecology
DX: O26.893 Other specified pregnancy related conditions, third trimester (principal); R10.9 Unspecified abdominal pain; Z3A.36 36 weeks gestation of pregnancy
CPT/HCPCS: 59025